=== PATIENT | female | born 1965 | race Two or more races ===

== ENCOUNTER 2023-03-07 23:52 | Inpatient (IN) | payer OTHER ==
[~2023-03-07] VITALS: Ht 157.5 cm; Wt 54.4 kg
[2023-03-08] MEDS ORDERED: LEXAPRO5 MG (00:11)
[2023-03-08] MEDS ORDERED: RESTORIL15 M1 (00:11)
[2023-03-08 02:49] LABS: HEMATOCRIT 39.1 % (36.0-45.00); HEMOGLOBIN 13.4 g/dL (12.0-15.00); MEAN CELL VOLUME 96.4 fL (80.00-100.00); MEAN CORPUSCULAR HEMOGLOBIN 32.9 pg (27.00-32.0); MEAN CORPUSCULAR HGB CONC 34.2 g/dl (32.0-36.0); PLATELET COUNT 243 K/uL (150-450); RED BLOOD COUNT 4.06 M/uL (4.00-6.00); RED CELL DISTRIBUTION WIDTH 13.2 % (11.5-14.5)
[2023-03-08 02:56] LABS: INR 0.94; PARTIAL THROMBOPLASTIN TIME 25.7 SECONDS (22.0-34.0); PROTHROMBIN TIME 9.9 SECONDS (9.0-11.5)
[2023-03-08 03:00] LABS: ALBUMIN 3.7 gm/dL (3.4-5.0); BILIRUBIN TOTAL 0.38 mg/dL (0.3-1.2); BILIRUBIN,CONJUGATED 0.11 mg/dL (0.0-0.2); BILIRUBIN,UNCONJUGATED 0.27 mg/dL (0.0-0.6); CALCIUM 8.9 mg/dL (8.5-10.1); CREATININE SERUM 0.71 mg/dL (0.55-1.02); GFR 84.85; GLOBULINA 3.3 G/DL (2.4-3.5); POTASSIUM 3.52 mEq/L (3.5-5.1)
[2023-03-08 03:31] LABS: URINE APPEARANCE Cloudy; URINE BILIRRUBIN Negative (NEGATIVE); URINE BLOOD Small; URINE COLOR Yellow; URINE GLUCOSE Negative (NEGATIVE); URINE LEUKOCYTE Negative; URINE NITRATE Negative; URINE PROTEIN Negative (NEGATIVE); URINE UROBILINOGEN 0.2 E.U./dl
[2023-03-08 03:34] LABS: URINE BACTERIA 1421.1 uL (0.0-1933); URINE EPITHELIAL CELLS 65.8 uL (0.0-38.8); URINE RBC 13.6 uL (0.0-20.8); URINE WBC 18.7 uL (0.0-23.2)
== END 2023-03-09 16:45 | disposition home or self-care (01) | DRG 399 ==
LOC: ER 23:53 → SEC-K 03-08 08:03 → O/R 03-08 08:03 → SURH 03-08 08:03 → O/R 03-08 10:24 → SURH 03-08 13:54
PROVIDERS: General Practice; ADMIT Surgery; ATTEND Surgery
PROC: BW21Y0Z Computerized Tomography (CT Scan) of Abdomen and Pelvis using Other Contrast, Unenhanced and Enhanced (ICD-10-PCS; 2023-03-08)
PROC: 0DTJ4ZZ Resection of Appendix, Percutaneous Endoscopic Approach (ICD-10-PCS; principal; 2023-03-08 10:00)
DX: K35.890 Other acute appendicitis without perforation or gangrene (principal); Z20.822 Contact with and (suspected) exposure to COVID-19